=== PATIENT | male | born 1945 | race Caucasian/White ===

== ENCOUNTER 2019-02-03 09:57 | Emergency (ER) | payer OTHER ==
[~2019-02-03] VITALS: Ht 162.6 cm; Wt 89.0 kg
[~2019-02-03 09:57] MED LIST: CYCL10TA7 PO; IBUP800T48 PO; MED4DP PO; NAPR-985 PO; OXYC-279 PO
[2019-02-03 10:00] VITALS: BP 180/90; PULSE 90; RESP 18; Ht 162.6 cm; Wt 89.0 kg
[2019-02-03] MEDS ORDERED: KETOROLAC 30 MG INJ IM STA (10:58)
[2019-02-03] MEDS ORDERED: METHYLPREDNISOLONE 125 MG INJ IM ONE (11:00)
== END 2019-02-03 11:26 | disposition home or self-care (01) ==
LOC: FTE 09:57
DX: M54.41 Lumbago with sciatica, right side (principal); I10 Essential (primary) hypertension
CPT/HCPCS: 96372; 99284; J1885; J2930